=== PATIENT | female | born 1980 | race Caucasian/White ===

== ENCOUNTER → 2016-05-19 | Outpatient (CLI) | payer OTHER ==
--- NOTE | 2016-05-19 13:32 | DX ---
Lumbar spine, 4 views, including bending views. History: History of lumbar fusion. Follow up. Degenerative disk disease. Comparison: November 2015. Findings: Postsurgical changes are seen of fusion at L5-S1. Right pedicle screws and stabilization ro d are seen in place and a spinous fixation device. Interbody bone graft is in stable position. No sig nificant spondylolisthesis with flexion or extension. Facet hypertrophy is seen at L4-L5. No other si gnificant interval change. Impression: Stable fusion L5 to S1.
== END ==
LOC: FIMAGING 09:13
PROVIDERS: ATTEND Physician Assistant Surgical
DX: Z98.1 Arthrodesis status (principal); M89.38 Hypertrophy of bone, other site

== ENCOUNTER → 2017-06-17 | Outpatient (CLI) | payer OTHER | LOC: FIMAGING 13:16 | PROVIDERS: ATTEND Physician Assistant Surgical | DX: Z09 Encounter for follow-up examination after completed treatment for conditions other than malignant neoplasm (principal); Z98.1 Arthrodesis status ==